=== PATIENT | male | born 1975 | race Caucasian/White ===

== ENCOUNTER 2021-05-19 13:17 | Outpatient (CLI) | payer BC ==
[2021-05-20 07:39] LABS: SARS-CoV-2 PCR by NAA Not Detected (NotDetected)
== END 2021-05-19 13:18 | disposition home or self-care (01) ==
LOC: CSHLAB 13:17
PROVIDERS: ATTEND Internal Medicine Gastroenterology
DX: Z20.822 Contact with and (suspected) exposure to COVID-19 (principal); Z12.11 Encounter for screening for malignant neoplasm of colon
CPT/HCPCS: U0003; U0005

== ENCOUNTER 2021-05-22 10:57 | Day surgery (SDC) | payer BC ==
[2021-05-20 09:45] VITALS: BMI 35.2
[2021-05-22] MEDS ORDERED: Lidocaine 1% MPF 2 ML VIAL ONE (11:30)
[2021-05-22] MEDS ORDERED: PROPOFOL 20 ML ONE ×3 (12:24→12:53)
[2021-05-22] MEDS ORDERED: PHENYLEPHRINE-NS 100 MCG/ML 10 ML SYRINGE ONE (12:59)
== END 2021-05-22 13:47 | disposition home or self-care (01) ==
LOC: CSHSDC 10:57
PROVIDERS: ATTEND Internal Medicine Gastroenterology
PROC: 0DBH8ZZ Excision of Cecum, Via Natural or Artificial Opening Endoscopic (ICD-10-PCS; principal; 2021-05-22)
DX: Z12.11 Encounter for screening for malignant neoplasm of colon (principal); K63.5 Polyp of colon; K64.8 Other hemorrhoids; G47.30 Sleep apnea, unspecified; F32.A Depression, unspecified; N40.0 Benign prostatic hyperplasia without lower urinary tract symptoms; K21.9 Gastro-esophageal reflux disease without esophagitis
CPT/HCPCS: 88305; J2704